=== PATIENT | female | born 1995 | race Caucasian/White ===

== ENCOUNTER 2016-11-07 08:34 | Emergency (ER) | payer MEDICAID, OTHER ==
[2016-11-07 09:00] VITALS: BP 140/80; PULSE 83; RESP 18; TEMP 98.1; O2SAT 99
[2016-11-07 09:49] VITALS: BMI 23.1
--- NOTE | 2016-11-07 09:55 | ED PDOC ---
Arrival/HPI - General Chief Complaint: Medical Clearance Time Seen by Provider: 11/07/16 09:52 Historian: Patient - History of Present Illness Narrative History of Present Illness (Text): 11/07/16 Ira Arias is a 21 year old female w/o significant PMHx who presents to the emergency department requesting test due to a 1 week missed period. Patient reports her last menstrual period was on September 26, 2016. Otherwise, patient denies other active physical complaints, denies fever, chills , headache, dizziness, abd. pain, N/V/D, back pain, UTI sx, denies vaginal bleeding, irritation or any other complaints. Pt admits, no previous hx of miscarriage or ectopic . Ambulate to Ed for evaluation, not in any apparent distress. Symptom Onset: Sudden Symptom Course: Unchanged Past Medical History - Provider Review Nursing Documentation Reviewed: Yes - Past History Past History: No Previous - Infectious Disease Hx of Infectious Diseases: None - Tetanus Immunization Tetanus Immunization: Up to Date - Past Medical History Past Medical History: No Previous - Cardiac Hx Cardiac Disorders: No - Pulmonary Hx Asthma: Yes - Neurological Hx Migraine: Yes - Psychiatric Hx Substance Use: Yes (Marijuana) - Past Surgical History Past Surgical History: No Previous - Suicidal Assessment Feels Threatened In Home Enviroment: No Family/Social History - Physician Review Nursing Documentation Reviewed: Yes Family/Social History: Unknown Family HX Smoking Status: Current Some Days Smoker Hx Alcohol Use: No Hx Substance Use: Yes (Marijuana) Hx Substance Use Treatment: No Allergies/Home Meds Allergies/Adverse Reactions: Allergies pineapple Allergy (Verified 06/20/15 19:43) SWELLING Pinapple Allergy (Uncoded 11/07/16 09:01) ANAPHYLAXIS Home Medications: Home Meds Medication Instructions Recorded Confirmed Albuterol 0.09 mg IH PRN PRN 08/27/13 06/20/15 Azithromycin [Zithromax] 06/20/15 Review of Systems - Review of Systems Constitutional: absent: Fevers Respiratory: absent: SOB Gastrointestinal: absent: Abdominal Pain Genitourinary Female: Other (missed period. requesting test). absent : Dysuria, Vaginal Bleeding Physical Exam Vital Signs Reviewed: Yes Vital Signs Temp Pulse Resp BP Pulse Ox 11/07/16 08:55 98.1 F 83 18 140/80 99 Temperature: Afebrile Blood Pressure: Normal Pulse: Regular Respiratory Rate: Normal Appearance: Positive for: Well-Appearing, Non-Toxic, Comfortable Pain Distress: None Mental Status: Positive for: Alert and Oriented X 3 - Systems Exam Conjunctiva: Present: Normal Mouth: Present: Moist Mucous Membranes. No: Drooling Pharnyx: Present: Normal Neck: Present: Trachea Midline. No: JVD Respiratory/Chest: Present: Clear to Auscultation, Good Air Exchange. No: Respiratory Distress, Accessory Muscle Use Cardiovascular: Present: Regular Rate and Rhythm, Normal S1, S2. No: Murmurs Abdomen: Present: Normal Bowel Sounds. No: Tenderness, Distention, Peritoneal Signs, Guarding Back: No: CVA Tenderness Upper Extremity: Present: Normal ROM. No: Deformity Lower Extremity: No: Edema, Tenderness, Swelling, Deformity Neurological: Present: GCS=15, Speech Normal Skin: Present: Warm, Dry, Normal Color. No: Rashes Psychiatric: Present: Alert, Oriented x 3 Medical Decision Making ED Course and Treatment: 11/07/16 10:02 Impression: 21 year old female with missed period, denies vaginal bleeding or abdominal pain. Requesting exam. Plan: -- Urinalysis -- Reassess and disposition Progress Notes: Results show positive on exam. On reevaluation the patient remained asymptomatic and is in no acute distress. I have discussed the results and plan with the patient, who expresses understanding. Patient given the opportunity to ask question, all questions were answered and there is agreement with the plan to discharge the patient home. Patient is stable for discharge. Patient was instructed to follow up with physician/clinic in 1-2 days or return if symptoms persist/worsen or new concerning symptoms arise. - Lab Interpretations I have reviewed the lab results: Yes - Scribe Statement The provider has reviewed the documentation as recorded by the Breibe Lilo Suresh Provider Scribe Attestation: All medical record entries made by the Scribe were at my direction and personally dictated by me. I have reviewed the chart and agree that the record accurately reflects my personal performance of the history, physical exam, medical decision making, and the department course for this patient. I have also personally directed, reviewed, and agree with the discharge instructions and disposition. Disposition/Present on Arrival - Present on Arrival Any Indicators Present on Arrival: No History of DVT/PE: No History of Uncontrolled Diabetes: No Urinary Catheter: No History of Decub. Ulcer: No History Surgical Site Infection Following: None - Disposition Have Diagnosis and Disposition been Completed?: Yes Diagnosis: Disposition: HOME/ ROUTINE Disposition Time: 09:20 Patient Plan: Discharge Condition: STABLE Discharge Instructions (ExitCare): (ED) Additional Instructions: FOLLOW UP WITH WOMEN'S CLINIC IN 2-3 DAYS FOR FURTHER EVALUATION AND TREATMENT NEED RETURN TO ED AT ANY TIME IF ANY ABDOMINAL PAIN, VOMITING, VAGINAL BLEEDING OR ANY OTHER NEW CHANGES. Prescriptions: Multivit/Folic Acid/I [ Plus] 1 tab PO DAILY #30 tab [facility]errals: [facility] [Outside] - Follow up with primary [facility] [place] - Follow up with primary [employer] [facility] [Outside] - Follow up with primary Forms: [employer] (Slovak)
--- NOTE | 2016-11-07 09:56 | ED PDOC ---
Arrival/HPI - General Chief Complaint: Medical Clearance Time Seen by Provider: 11/07/16 09:52 Historian: Patient - History of Present Illness Narrative History of Present Illness (Text): 11/07/16 Ira Arias is a 21 year old female, who presents to the emergency department requesting test due to a 1 week missed period. Patient reports her last menstrual period was on September 26. Patient denies any vaginal bleeding, abdominal pain, fever, shortness of breath, or other complaints. Symptom Onset: Sudden Symptom Course: Unchanged Past Medical History - Provider Review Nursing Documentation Reviewed: Yes - Past History Past History: No Previous - Infectious Disease Hx of Infectious Diseases: None - Tetanus Immunization Tetanus Immunization: Up to Date - Past Medical History Past Medical History: No Previous - Cardiac Hx Cardiac Disorders: No - Pulmonary Hx Asthma: Yes - Neurological Hx Migraine: Yes - Psychiatric Hx Substance Use: Yes (Marijuana) - Past Surgical History Past Surgical History: No Previous - Suicidal Assessment Feels Threatened In Home Enviroment: No Family/Social History - Physician Review Nursing Documentation Reviewed: Yes Family/Social History: Unknown Family HX Smoking Status: Current Some Days Smoker Hx Alcohol Use: No Hx Substance Use: Yes (Marijuana) Hx Substance Use Treatment: No Allergies/Home Meds Allergies/Adverse Reactions: Allergies pineapple Allergy (Verified 06/20/15 19:43) SWELLING Pinapple Allergy (Uncoded 11/07/16 09:01) ANAPHYLAXIS Home Medications: Home Meds Medication Instructions Recorded Confirmed Albuterol 0.09 mg IH PRN PRN 08/27/13 06/20/15 Azithromycin [Zithromax] 06/20/15 Review of Systems - Review of Systems Constitutional: absent: Fevers Respiratory: absent: SOB Genitourinary Female: Other (missed period. requesting exam). absent : Dysuria, Vaginal Bleeding Neurological: absent: Headache Physical Exam Vital Signs Reviewed: Yes Vital Signs Temp Pulse Resp BP Pulse Ox 11/07/16 08:55 98.1 F 83 18 140/80 99 Temperature: Afebrile Blood Pressure: Normal Pulse: Regular Respiratory Rate: Normal Appearance: Positive for: Well-Appearing, Non-Toxic, Comfortable Pain Distress: None Mental Status: Positive for: Alert and Oriented X 3 - Systems Exam Head: Present: Atraumatic, Normocephalic Pupils: Present: PERRL Extroacular Muscles: Present: EOMI Conjunctiva: Present: Normal Neck: Present: Normal Range of Motion Respiratory/Chest: Present: Clear to Auscultation, Good Air Exchange. No: Respiratory Distress, Accessory Muscle Use Cardiovascular: Present: Regular Rate and Rhythm, Normal S1, S2. No: Murmurs Abdomen: Present: Normal Bowel Sounds. No: Tenderness, Distention, Peritoneal Signs Upper Extremity: Present: Normal Inspection. No: Cyanosis, Edema Lower Extremity: Present: Normal Inspection. No: Edema Neurological: Present: GCS=15, CN II-XII Intact, Speech Normal Skin: Present: Warm, Dry, Normal Color. No: Rashes Psychiatric: Present: Alert, Oriented x 3, Normal Insight, Normal Concentration Medical Decision Making ED Course and Treatment: 11/07/16 Impression: 21 year old female with missed period. Requesting exam. Plan: -- Urinalysis -- Reassess and disposition Progress Notes: Results show positive on exam. On reevaluation the patient feels better and is in no acute distress. I have discussed the results and plan with the patient, who expresses understanding. Patient given the opportunity to ask question, all questions were answered and there is agreement with the plan to discharge the patient home. Patient is stable for discharge. Patient was instructed to follow up with physician/clinic in 1-2 days or return if symptoms persist/worsen or new concerning symptoms arise. - Lab Interpretations I have reviewed the lab results: Yes - Scribe Statement The provider has reviewed the documentation as recorded by the Breibe Lilo Suresh Provider Scribe Attestation: All medical record entries made by the Scribe were at my direction and personally dictated by me. I have reviewed the chart and agree that the record accurately reflects my personal performance of the history, physical exam, medical decision making, and the department course for this patient. I have also personally directed, reviewed, and agree with the discharge instructions and disposition. Disposition/Present on Arrival - Present on Arrival History of DVT/PE: No History of Uncontrolled Diabetes: No Urinary Catheter: No History of Decub. Ulcer: No History Surgical Site Infection Following: None - Disposition Forms: [employer] (French)
== END 2016-11-07 10:10 | disposition home or self-care (01) ==
LOC: EDUNIT# → ED 08:34
DX: Z32.01 Encounter for pregnancy test, result positive (principal)

== ENCOUNTER 2016-11-10 20:46 | Emergency (ER) | payer MEDICAID, OTHER ==
[2016-11-10 21:02] VITALS: BMI 24.6
[2016-11-10 21:08] VITALS: RESP 16; TEMP 98.1
[2016-11-10] MEDS ORDERED: Sodium Chloride 0.9% 1,000 ML IV STA (21:18)
--- NOTE | 2016-11-10 21:24 | ED PDOC ---
Arrival/HPI - General Chief Complaint: Headache Time Seen by Provider: 11/10/16 21:04 Historian: Patient - History of Present Illness Narrative History of Present Illness (Text): 11/10/16 21:19 21 y.o. female (1 miscarriage, 1 elective ), LMP 09/26/16 - currently , who says that she remembers sitting on a bench earlier this evening when a friend of hers told her that she passed out and began to shake and foam at the mouth; she says she woke up with her friend holding her up and says felt weird. It occurred a few hours ago and says has no symptoms at this time. She denies any headache or visual changes or dizziness or focal weakness or fever or n/v or abd pain or vaginal bleeding. Past Medical History - Past History Past History: No Previous - Infectious Disease Hx of Infectious Diseases: None - Tetanus Immunization Tetanus Immunization: Up to Date - Past Medical History Past Medical History: No Previous - Cardiac Hx Cardiac Disorders: No - Pulmonary Hx Asthma: Yes - Neurological Hx Migraine: Yes - Psychiatric Hx Psychophysiologic Disorder: Yes (ADHD) Hx Depression: No Hx Emotional Abuse: No Hx Physical Abuse: No Hx Substance Use: Yes (Marijuana) - Past Surgical History Past Surgical History: No Previous - Anesthesia Hx Anesthesia: No - Suicidal Assessment Feels Threatened In Home Enviroment: No Family/Social History Family/Social History: No Known Family HX Smoking Status: Current Some Days Smoker Hx Alcohol Use: No Hx Substance Use: Yes (Marijuana) Hx Substance Use Treatment: No Allergies/Home Meds Allergies/Adverse Reactions: Allergies pineapple Allergy (Verified 06/20/15 19:43) SWELLING Pinapple Allergy (Uncoded 11/07/16 09:01) ANAPHYLAXIS Review of Systems - Review of Systems Constitutional: Normal Eyes: Normal ENT: Normal Respiratory: Normal Cardiovascular: Normal Gastrointestinal: Normal Genitourinary Female: Normal Musculoskeletal: Normal Skin: Normal Neurological: Seizure (witnessed) Endocrine: Normal Hemo/Lymphatic: Normal Psychiatric: Normal Physical Exam Vital Signs Temp Pulse Resp BP Pulse Ox 11/10/16 20:47 98.1 F 85 16 134/61 98 Temperature: Afebrile Blood Pressure: Normal Pulse: Regular Respiratory Rate: Normal Appearance: Positive for: Well-Appearing, Non-Toxic, Comfortable Pain Distress: None Mental Status: Positive for: Alert and Oriented X 3 - Systems Exam Head: Present: Atraumatic, Normocephalic Pupils: Present: PERRL Extroacular Muscles: Present: EOMI Conjunctiva: Present: Normal Mouth: Present: Moist Mucous Membranes Pharnyx: Present: Normal. No: ERYTHEMA, EXUDATE Neck: Present: Normal Range of Motion Respiratory/Chest: Present: Clear to Auscultation, Good Air Exchange. No: Respiratory Distress, Accessory Muscle Use Cardiovascular: Present: Regular Rate and Rhythm, Normal S1, S2. No: Murmurs Abdomen: Present: Normal Bowel Sounds. No: Tenderness, Distention, Peritoneal Signs Back: Present: Normal Inspection Upper Extremity: Present: Normal Inspection. No: Cyanosis, Edema Lower Extremity: Present: Normal Inspection. No: Edema Neurological: Present: GCS=15, CN II-XII Intact, Speech Normal, Motor Func Grossly Intact Skin: Present: Warm, Dry, Normal Color. No: Rashes Psychiatric: Present: Alert, Oriented x 3, Normal Insight, Normal Concentration Medical Decision Making ED Course and Treatment: 11/10/16 21:30 Patient with noted history s/p seizure vs. syncope is . LMP was . Patient is asymptomatic. Differential: Vasovagal Syncope vs Seizure vs. Ectopic EKG: Ordered, reviewed, and independently interpreted the EKG. Rate : 79 BPM Rhythm : NSR Interpretation : Normal intervals, normal axis, T wave inversion in leads V1, V2 , and v3. No ST changes. Comparison : No previous EKG for comparison. 11/11/16 00:11 Patient with noted history; ekg with normal rhythm - patient is , so will avoid CT brain due to radiation exposure. Patient has no headache with normal neuro exam and per records had a negative MRI of the brain 2 years ago. Labs showing beta-HCG of 50K, otherwise unremarkable. Sono showing 6wk + 4d IUP (no ectopic). At this time the patient is asymptomatic with normal vitals. Doubt cardiopulmonary etiology. Regarding the possibility of seizures , the patient is being instructed to follow up with neurology lizette. Ok for d/c. - Lab Interpretations Lab Results: 11/10/16 21:50 11/10/16 21:50 Lab Results 11/10/16 23:55: Urine Color Yellow, Urine Appearance Clear, Urine pH 6.0, Ur Specific Gary 1.015, Urine Protein Negative, Urine Glucose (UA) Negative, Urine Ketones Negative, Urine Blood Negative, Urine Nitrate Negative, Urine Bilirubin Negative, Urine Urobilinogen 0.2, Ur Leukocyte Esterase Negative 11/10/16 21:50: Beta HCG, Quant [id number] H 11/10/16 21:50: Sodium 138, Potassium 4.0, Chloride 103, Carbon Dioxide 23, Anion Gap 16, BUN 14, Creatinine 0.6, Est GFR ( Amer) > 60, Est GFR (Non- Af Amer) > 60, Random Glucose 83, Calcium 9.6, Magnesium 2.0, Total Bilirubin 0.3, AST 25, ALT 24, Alkaline Phosphatase 47, Total Protein 7.1, Albumin 4.3, Globulin 2.8, Albumin/Globulin Ratio 1.5 11/10/16 21:50: WBC 10.8, RBC 4.22, Hgb 12.0, Hct 35.8 L, MCV 84.8, MCH 28.4, MCHC 33.5, RDW 13.2, Plt Count 339, MPV 10.3, Gran % 78.3 H, Lymph % (Auto) 14.1 L, Frio % (Auto) 6.8 H, Eos % (Auto) 0.5 L, Baso % (Auto) 0.3, Gran # 8.44 H, Lymph # 1.5, Frio # 0.7 H, Eos # 0.1, Baso # 0.03 I have reviewed the lab results: Yes - RAD Interpretation Radiology Orders: 11/10/16 21:16 OB TRANSVAGINAL [US] Stat - Medication Orders Current Medication Orders: Discontinued Medications Sodium Chloride (Sodium Chloride 0.9%) 1,000 mls @ 999 mls/hr IV .Q1H1M STA Stop: 11/10/16 22:18 Last Admin: 11/10/16 21:55 Dose: 999 mls/hr eMAR Start Stop Document 11/10/16 21:55 SC (Rec: 11/10/16 21:55 [place] [facility] [place] [id number] Intravenous Solution Start Date 11/10/16 Start Time 21:55 End Date 11/10/16 End time 22:55 Total Infusion Time 60 - Scribe Statement The provider has reviewed the documentation as recorded by the Pasha Flor Provider Scribe Attestation: All medical record entries made by the Scribe were at my direction and personally dictated by me. I have reviewed the chart and agree that the record accurately reflects my personal performance of the history, physical exam, medical decision making, and the department course for this patient. I have also personally directed, reviewed, and agree with the discharge instructions and disposition. Disposition/Present on Arrival - Present on Arrival Any Indicators Present on Arrival: No History of DVT/PE: No History of Uncontrolled Diabetes: No Urinary Catheter: No History of Decub. Ulcer: No History Surgical Site Infection Following: None - Disposition Have Diagnosis and Disposition been Completed?: Yes Diagnosis: Syncope, Intrauterine Disposition: HOME/ ROUTINE Disposition Time: 12:20 Patient Plan: Discharge Condition: GOOD Discharge Instructions (ExitCare): Syncope (ED), Epilepsy (ED), Epilepsy and (ED) Additional Instructions: Take vitamins daily. Follow up with neurology lizette and drink plenty of fluids. Follow up with OBGYN. Return to the emergency department if any new concerning symptoms. Referrals: Rayray Romero MD [Staff Provider] - Follow up with primary Antonieta Singh MD [Staff Provider] - [facility] [[facility]] - Follow up with primary [facility] [Outside] - Follow up with primary Forms: [employer] (Indonesian)
[2016-11-10 22:06] LABS: BASO # 0.03 K/mm3 (0.0-2.0); BASO % 0.3 % (0.0-3.0); EOS # 0.1 (0.0-0.7); EOS % 0.5 % (1.5-5.0); GRAN # 8.44 (1.4-6.5); GRAN % 78.3 % (50.0-68.0); HEMATOCRIT 35.8 % (36.0-48.0); LYMPH # 1.5 (1.2-3.4); LYMPH % 14.1 % (22.0-35.0); MEAN CELL VOLUME 84.8 fl (80.0-105.0); MEAN CORPUSCULAR HEMOGLOBIN 28.4 pg (25.0-35.0); MEAN CORPUSCULAR HGB CONC 33.5 g/dl (31.0-37.0); MEAN PLATELET VOLUME 10.3 fl (7.0-11.0); MONO # 0.7 (0.1-0.6); MONO % 6.8 % (1.0-6.0); RED CELL DISTRIBUTION WIDTH 13.2 % (11.5-14.5); WHITE BLOOD COUNT 10.8 10^3/ul (4.5-11.0)
[2016-11-10 22:12] LABS: ALB/GLOB RATIO 1.5 (1.1-1.8); ALKALINE PHOSPHATASE 47 U/L (38-126); ALT/SGPT 24 U/L (7-56); AST/SGOT 25 U/L (14-36); BILIRUBIN,TOTAL 0.3 mg/dL (0.2-1.3); BLOOD UREA NITROGEN 14 mg/dL (7-21); CALCIUM 9.6 mg/dL (8.4-10.5); CARBON DIOXIDE 23 mmol/L (21-33); CHLORIDE 103 mmol/L (98-107); GFR AFRICAN-AMERICAN > 60; GLUCOSE,RANDOM 83 mg/dL (70-110); SODIUM 138 mmol/L (132-148); TOTAL PROTEIN 7.1 g/dL (5.8-8.3)
--- NOTE | 2016-11-10 23:34 | US ---
EXAM: US First Trimester, Transabdominal CLINICAL HISTORY: 21 years old, female; Pain; complicated by abdominal or pelvic pain; Lower; First trimester; Gestational age or lmp: 09/26/2016; ; Additional info: Syncope, - R/O ectopic TECHNIQUE: Real-time transabdominal obstetrical ultrasound of the maternal pelvis and a first trimester with image documentation. COMPARISON: There are no prior studies for comparison. FINDINGS: Gestation: There is a single gestational sac in the uterus.A yolk sac is present, internal diameter measures 3.7 mm. pole is not visualized Uterus: Uterus measures approximately 9.2 x 4.9 x 6.8 cm. Ovaries: Neither ovary could be identified. Free fluid: There is no free fluid. Bladder: Bladder is almost empty which limits evaluation IMPRESSION: Early intrauterine gestation with yolk sac, pole not visible on transabdominal imaging EXAM: US , Transvaginal EXAM DATE/TIME: 11/10/2016 9:16 PM CLINICAL HISTORY: 21 years old, female; Pain; complicated by abdominal or pelvic pain; Lower; First trimester; Gestational age or lmp: 09/26/2016; ; Additional info: Syncope, - R/O ectopic TECHNIQUE: Real-time transvaginal obstetrical ultrasound of the maternal pelvis and a first trimester with image documentation. Transvaginal imaging was used for better evaluation of the fetus and adnexa. COMPARISON: There are no prior studies for comparison. FINDINGS: Gestation: There is a single intrauterine gestation. Gestational sac has mean diameter 19.[address] [place] [place] rump length measures 8.2 mm. There is embryonic heart rate of 134 beats per minute. A yolk sac is present, internal diameter measures 3.8 mm. Uterus/cervix: Cervix is closed. Ovaries: Right ovary measures approximately 2.81 x 1.8 x 2.18 cm. Left ovary measures approximately 3.09 x 2.28 x 3.02 cm. There is flow in both ovaries on Doppler imaging. Free fluid: There is no free fluid. IMPRESSION: 6 week 4 day single living intrauterine gestation, estimated dated delivery of 07/02/17
[2016-11-11 00:05] LABS: URINE BILIRUBIN NEGATIVE (NEGATIVE); URINE BLOOD NEGATIVE (NEGATIVE); URINE GLUCOSE (UA) NEGATIVE (NEGATIVE); URINE KETONE NEGATIVE (NEGATIVE); URINE LEUKOCYTE ESTERASE NEGATIVE Leu/uL (NEGATIVE); URINE PROTEIN NEGATIVE mg/dL (<30 mg/dL); URINE UROBILINOGEN 0.2 E.U./dL (<1 E.U./dL)
[2016-11-11 00:08] LABS: URINE APPEARANCE CLEAR (CLEAR); URINE COLOR YELLOW (YELLOW)
[2016-11-11 00:59] VITALS: BP 126/77; PULSE 76; O2SAT 99
--- NOTE | 2016-11-12 01:38 | CARD ---
APPROVED REPORT EKG Measurement Heart [id number] <Conclusion> Normal sinus rhythm Normal ECG
== END 2016-11-11 00:40 | disposition home or self-care (01) ==
LOC: ED 20:46
DX: O26.891 Other specified pregnancy related conditions, first trimester (principal); R55 Syncope and collapse; Z3A.01 Less than 8 weeks gestation of pregnancy
CPT/HCPCS: 76817; 80053; 81003; 83735; 84702; 85025; 93005; 96360; 99285; J7040